=== PATIENT | female | born 1995 | race Two or more races ===

== ENCOUNTER 2023-01-04 11:47 | Emergency (ER) | payer MEDICAID, OTHER ==
[~2023-01-04] VITALS: Ht 175.3 cm; Wt 143.0 kg
[~2023-01-04 11:47] MED LIST: ASPI81TA48
[2023-01-04 13:48] VITALS: BP 142/94; PULSE 124; RESP 18; TEMP 98.4; O2SAT 95
[2023-01-04] MEDS ORDERED: PENI500T2 PO (15:00)
== END 2023-01-04 15:07 | disposition home or self-care (01) ==
LOC: ER 11:47
DX: L04.0 Acute lymphadenitis of face, head and neck (principal); Z79.82 Long term (current) use of aspirin; Z79.899 Other long term (current) drug therapy